=== PATIENT | female | born 1990 | race Caucasian/White ===

== ENCOUNTER 2018-04-28 19:29 | Emergency (ER) | payer BC ==
[2018-04-28 20:05] LABS: BASOPHIL % 0.6 % (0.0-0.4); Basophil (Absolute #) 0.07 (0-0.4); Eosinophil % 1.7 % (0.00-5.0); Eosinophil (Absolute #) 0.19 (0-0.5); Granulocyte Absolute (ANC) 7.23 (1.4-6.9); Granulocytes % 64.4 % (36.0-66.0); Hematocrit 38.1 % (35-47); Hemoglobin 12.6 gm/dl (12.0-16.0); Lymphocyte (Absolute #) 2.89 (1.0-4.6); Lymphocytes % 25.7 % (24.0-44.0); Mean Cell Volume 89.6 fl (78-100); Mean Corpuscular Hemoglobin 29.6 pg (26-32); Mean Corpuscular Hgb Concent. 33.1 g/dl (32-36); Monocyte (Absolute #) 0.85 (0.0-1.3); Monocytes % 7.6 % (0.0-12.0); Platelet Count 350 K/mm3 (150-450); Red Blood Count 4.25 M/mm3 (4.1-5.4); Red Cell Distribution Width 12.7 % (11.5-14.0); White Blood Count 11.2 K/mm3 (4.0-10.5)
--- NOTE | 2018-04-28 20:24 | ERPHSYRPT ---
- History of Present Illness Time Seen by Provider: 04/28/18 20:01 Source: patient Patient Subjective Stated Complaint: pt is alert and oriented. pt is ambulatory with a steady gait. pt is in "early " and began having a large amount of bright red bleeding in the shower. pt has had 1st OB appointment and they said she is 8 weeks as of tomorrow. pt states she was cramping early today but is not at this current time. Triage Nursing Assessment: see above Physician History: This is a 27-year-old white female 2 para 1 who states she had a last menstrual period in January. Further states that she had an ultrasound 2 weeks ago which she state they noted a yolk sac but a very early this was done at Dr. inge rodriguez office. Patient states that she had an episode of vaginal bleeding while taking a shower just prior to arrival. She states she has not been otherwise ill. Past medical history patient denies. Patient with a secondary to distress in the past . . Timing/Duration: today Severity: mild Modifying Factors: Improves With: nothing Associated Symptoms: other (patient states 8 weeks , vaginal bleeding), No nausea, No vomiting, No abdominal pain, No shortness of breath, No heartburn , No diaphoresis, No cough, No chills, No chest pain, No fever, No headaches, No loss of appetite, No malaise, No rash, No syncope, No seizure, No weakness Allergies/Adverse Reactions: Penicillins Allergy (Intermediate, Verified 10/18/15 16:19) Rash Home Medications: Vits W-Ca,Fe,FA(<1Mg) [] 1 each PO DAILY 10/18/15 [History] Hx Tetanus, Diphtheria Vaccination/Date Given: No Hx Influenza Vaccination/Date Given: No Hx Pneumococcal Vaccination/Date Given: No Immunizations Up to Date: Yes - Review of Systems Constitutional: No Fever, No Chills Eyes: No Symptoms Ears, Nose, & Throat: No Symptoms Respiratory: No Cough, No Dyspnea Cardiac: No Chest Pain, No Edema, No Syncope Abdominal/Gastrointestinal: No Abdominal Pain, No Nausea, No Vomiting, No Diarrhea Genitourinary Symptoms: (patient states states 8 weeks ), Vaginal Bleeding Musculoskeletal: No Back Pain, No Neck Pain Skin: No Rash Neurological: No Dizziness, No Focal Weakness, No Sensory Changes Psychological: No Symptoms Endocrine: No Symptoms All Other Systems: Reviewed and Negative - Past Medical History Pertinent Past Medical History: Yes Neurological History: No Pertinent History ENT History: No Pertinent History Cardiac History: No Pertinent History Respiratory History: No Pertinent History Endocrine Medical History: No Pertinent History Musculoskeletal History: No Pertinent History GI Medical History: No Pertinent History History: No Pertinent History Psycho-Social History: No Pertinent History Female Reproductive Disorders: No Pertinent History - Past Surgical History Past Surgical History: Yes Female Surgical History: Section - Social History Smoking Status: Never smoker Exposure to second hand smoke: No Drug Use: none Patient Lives Alone: No - Female History Hx Last Menstrual Period: January 2018 Hx Now: Yes - Nursing Vital Signs Nursing Vital Signs: Initial Vital Signs Temperature 99.5 F 04/28/18 19:30 Pulse Rate 88 04/28/18 19:30 Respiratory Rate 16 04/28/18 19:30 Blood Pressure 126/72 04/28/18 19:30 O2 Sat by Pulse Oximetry 99 04/28/18 19:30 Pain Scale Pain Intensity 0 - Physical Exam General Appearance: no apparent distress, alert Eye Exam: PERRL/EOMI, eyes nml inspection Ears, Nose, Throat Exam: normal ENT inspection, TMs normal, pharynx normal, moist mucous membranes Neck Exam: normal inspection, non-tender, supple, full range of motion Respiratory Exam: normal breath sounds, lungs clear, No respiratory distress Cardiovascular Exam: regular rate/rhythm, normal heart sounds, normal peripheral pulses Gastrointestinal/Abdomen Exam: soft, normal bowel sounds, No tenderness, No mass Pelvic Exam: normal external exam, vaginal bleeding, other (pelvic examination: Normal female external genitalia. Small amount of blood in the vaginal vault. 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, normal mood/affect, nml cerebellar function, nml station & gait, sensation nml, No motor deficits Skin Exam: normal color, warm, dry, No rash SpO2 Interpretation: normal (99%) SpO2: 99 Oxygen Delivery: Room Air - Course Nursing assessment & vital signs reviewed: Yes Ordered Tests: Active Orders 24 hr Category Date Time Status IV Insertion STAT Care 04/28/18 19:58 Active Pelvic Exam Assist STAT Care 04/28/18 21:00 Active OB <14 WKS 1ST GESTATION [US] Stat Exams 04/28/18 21:37 Taken CBC W DIFF Stat Lab 04/28/18 19:58 Completed CMP Stat Lab 04/28/18 19:58 Completed HCG QUALITATIVE,SERUM Stat Lab 04/28/18 19:58 Completed HCG, Quantitative (Inhouse) Stat Lab 04/28/18 20:15 Completed UA W/RFX UR CULTURE Stat Lab 04/28/18 20:45 Completed Lab/Rad Data: Laboratory Result Diagrams 04/28/18 19:58 04/28/18 19:58 Laboratory Results 04/28/18 04/28/18 04/28/18 Range/Units 20:45 20:15 20:15 WBC (4.0-10.5) K/mm3 RBC (4.1-5.4) M/mm3 Hgb (12.0-16.0) gm/dl Hct (35-47) % MCV (78-100) fl MCH (26-32) pg MCHC (32-36) g/dl RDW (11.5-14.0) % Plt Count (150-450) K/mm3 MPV (6-9.5) fl Gran % (36.0-66.0) % Eos # (Auto) (0-0.5) Absolute Lymphs (auto) (1.0-4.6) Absolute Monos (auto) (0.0-1.3) Lymphocytes % (24.0-44.0) % Monocytes % (0.0-12.0) % Eosinophils % (0.00-5.0) % Basophils % (0.0-0.4) % Absolute Granulocytes (1.4-6.9) Basophils # (0-0.4) Sodium (137-145) mmol/L Potassium (3.5-5.1) mmol/L Chloride (98-107) mmol/L Carbon Dioxide (22-30) mmol/L Anion Gap (5-15) MEQ/L BUN (7-17) mg/dL Creatinine (0.52-1.04) mg/dL Estimated GFR ML/MIN Glucose (74-106) mg/dL Calcium (8.4-10.2) mg/dL Total Bilirubin (0.2-1.3) mg/dL AST (14-36) U/L ALT (0-35) U/L Alkaline Phosphatase (38-126) U/L Serum Total Protein (6.3-8.2) g/dL Albumin (3.5-5.0) g/dL Beta HCG, Quant 27756 mIU/ml Serum , Qual (Negative) Urine Color YELLOW (YELLOW) Urine Appearance SLIGHTLY CLOUDY (CLEAR) Urine pH 5.0 (5-6) Ur Specific [place] 1.026 (1.005-1.025) Urine Protein 30 (Negative) Urine Ketones NEGATIVE (NEGATIVE) Urine Blood LARGE (0-5) De/ul Urine Nitrite NEGATIVE (NEGATIVE) Urine Bilirubin NEGATIVE (NEGATIVE) Urine Urobilinogen NEGATIVE (0-1) mg/dL Ur Leukocyte Esterase NEGATIVE (NEGATIVE) Urine WBC (Auto) 3-5 (0-5) /HPF Urine RBC (Auto) >101 (0-2) /HPF U Epithel Cells (Auto) NONE (FEW) /HPF Urine Bacteria (Auto) NONE SEEN (NEGATIVE) /HPF Urine Mucus (Auto) SLIGHT (NEGATIVE) /HPF Urine Culture Reflexed NO (NO) Urine Glucose NEGATIVE (NEGATIVE) mg/dL ABO Group O Rh Factor POSITIVE Antibody Screen NEGATIVE (NEGATIVE) 04/28/18 04/28/18 04/28/18 Range/Units 19:58 19:58 19:58 WBC 11.2 H (4.0-10.5) K/mm3 RBC 4.25 (4.1-5.4) M/mm3 Hgb 12.6 (12.0-16.0) gm/dl Hct 38.1 (35-47) % MCV 89.6 (78-100) fl MCH 29.6 (26-32) pg MCHC 33.1 (32-36) g/dl RDW 12.7 (11.5-14.0) % Plt Count 350 (150-450) K/mm3 MPV 9.0 (6-9.5) fl Gran % 64.4 (36.0-66.0) % Eos # (Auto) 0.19 (0-0.5) Absolute Lymphs (auto) 2.89 (1.0-4.6) Absolute Monos (auto) 0.85 (0.0-1.3) Lymphocytes % 25.7 (24.0-44.0) % Monocytes % 7.6 (0.0-12.0) % Eosinophils % 1.7 (0.00-5.0) % Basophils % 0.6 (0.0-0.4) % Absolute Granulocytes 7.23 H (1.4-6.9) Basophils # 0.07 (0-0.4) Sodium 137 (137-145) mmol/L Potassium 3.8 (3.5-5.1) mmol/L Chloride 100 (98-107) mmol/L Carbon Dioxide 25 (22-30) mmol/L Anion Gap 16.1 H (5-15) MEQ/L BUN 10 (7-17) mg/dL Creatinine 0.55 (0.52-1.04) mg/dL Estimated GFR > 60.0 ML/MIN Glucose 97 (74-106) mg/dL Calcium 10.1 (8.4-10.2) mg/dL Total Bilirubin 0.20 (0.2-1.3) mg/dL AST 19 (14-36) U/L ALT 13 (0-35) U/L Alkaline Phosphatase 74 (38-126) U/L Serum Total Protein 8.3 H (6.3-8.2) g/dL Albumin 5.0 (3.5-5.0) g/dL Beta HCG, Quant mIU/ml Serum , Qual POSITIVE (Negative) Urine Color (YELLOW) Urine Appearance (CLEAR) Urine pH (5-6) Ur Specific [place] (1.005-1.025) Urine Protein (Negative) Urine Ketones (NEGATIVE) Urine Blood (0-5) De/ul Urine Nitrite (NEGATIVE) Urine Bilirubin (NEGATIVE) Urine Urobilinogen (0-1) mg/dL Ur Leukocyte Esterase (NEGATIVE) Urine WBC (Auto) (0-5) /HPF Urine RBC (Auto) (0-2) /HPF U Epithel Cells (Auto) (FEW) /HPF Urine Bacteria (Auto) (NEGATIVE) /HPF Urine Mucus (Auto) (NEGATIVE) /HPF Urine Culture Reflexed (NO) Urine Glucose (NEGATIVE) mg/dL ABO Group Rh Factor Antibody Screen (NEGATIVE) - Progress Progress: improved Progress Note: 04/28/18 22:40 27-year-old white female 2 para 1 who states that she thinks she is 8 weeks arrives with complaint of vaginal bleeding just prior to arrival denies abdominal pain nausea vomiting she states that she is not having any urine problems. She did state that she was passing clots earlier. Physical examination abdomen is nontender. Vaginal examination cervix is closed there is a small amount of blood in the vaginal vault there does not appear to be active bleeding. There is uterine tenderness with palpation no adnexal tenderness. Patient's ultrasound Shows an intrauterine pole heart rate 1 54 bpm Proximal gestational age 7 weeks 2 days. There is a sub-chorionic hemorrhage. Patient appears to be stable. Will have patient return home plenty of fluids. Nothing in her vagina. Follow-up with her DEVELOPMENT EDUCATOR physician. Return for acute distress or for severe symptoms. - Departure Time of Disposition: 22:49 Departure Disposition: Home Clinical Impression: Threatened in first trimester, Vaginal bleeding Qualifiers: Weeks of gestation: less than 8 weeks Qualified Code(s): Z3A.01 - Less than 8 weeks gestation of Condition: Fair Critical Care Time: No Referrals: SIMA GILMAN [Primary Care Provider] - Instructions: Threatened Miscarriage (DC) Additional Instructions: Return home. Plenty of fluids. Rest. Nothing in your vagina. Contact your family doctor or DEVELOPMENT EDUCATOR physician in the morning to schedule reevaluation. Return for acute distress or for severe symptoms.
[2018-04-28 20:43] LABS: ALKALINE PHOSPHATASE 74 U/L (38-126); ANION GAP 16.1 MEQ/L (5-15); BLOOD UREA NITROGEN 10 mg/dL (7-17); CHLORIDE 100 mmol/L (98-107); Calcium 10.1 mg/dL (8.4-10.2); Carbon Dioxide 25 mmol/L (22-30); Creatinine 1 0.55 mg/dL (0.52-1.04); Glucose 97 mg/dL (74-106); Potassium 3.8 mmol/L (3.5-5.1); SGOT/AST 19 U/L (14-36); SGPT/ALT 13 U/L (0-35); SODIUM 137 mmol/L (137-145); Total Protein 8.3 g/dL (6.3-8.2)
[2018-04-28 21:19] LABS: ABO TYPING O; Antibody Screen NEGATIVE (NEGATIVE); RH TYPING POSITIVE
[2018-04-28 21:49] LABS: Appearance SLIGHTLY CLOUDY (CLEAR); Bilirubin NEGATIVE (NEGATIVE); Blood LARGE Ery/ul (0-5); Glucose NEGATIVE (NEGATIVE); Ketones NEGATIVE (NEGATIVE); Leukocyte Esterase NEGATIVE (NEGATIVE); Nitrite NEGATIVE (NEGATIVE); Protein,Urine Dip 30 (Negative); Specific Gravity 1.026 (1.005-1.025); Urobilinogen NEGATIVE mg/dL (0-1)
[2018-04-28 22:05] VITALS: BP 113/61
[2018-04-28 22:43] VITALS: O2SAT 99
[2018-04-28 23:07] VITALS: PULSE 79
--- NOTE | 2018-04-29 08:37 | XRAY ---
Indication: Vaginal bleeding and cramping. Two-dimensional transabdominal early OB ultrasound performed. Comparison: None for this . There is a single intrauterine gestational sac with presence of a single pole and yolk sac. The mean crown-rump length measures 1.13 cm corresponding to 7 weeks 2 days. heart rate 154 BPM. Tiny curvilinear subchorionic hemorrhage and tiny cul-de-sac fluid. Left and right ovaries not seen. Impression: Single viable intrauterine measuring 7 weeks 2 days. Expected date confinement is December 13, 2018. Tiny subchorionic hemorrhage and tiny cul-de-sac fluid. Comment: Preliminary report was given.
== END 2018-04-28 23:18 | disposition home or self-care (01) ==
LOC: ED 19:29
DX: O20.0 Threatened abortion (principal); Z3A.01 Less than 8 weeks gestation of pregnancy
CPT/HCPCS: 36000; 36415; 76801; 80053; 81001; 81025; 84702; 85025; 86850; 86900; 86901; 87490; 87590; 99284